=== PATIENT | male | born 1945 | race Caucasian/White ===

== ENCOUNTER 2019-04-16 07:42 | Day surgery (SDC) | payer OTHER ==
[2019-04-14 11:25] VITALS: BP 155/77
[~2019-04-16] VITALS: Ht 171.4 cm; Wt 98.9 kg
[2019-04-16] VITALS (15 sets, daily range): BP systolic 130–160; BP diastolic 65–82
[~2019-04-16 07:42] MED LIST: ALLO300T2 PO; ASPI-555 PO; LACTATED RINGERS 1000ML 1,000 ML IV SCH; LOSA50TA64 PO
--- NOTE | 2019-04-16 09:22 | NUR ---
LEFT TOE REDNESS AND SWELLING
[2019-04-16] MEDS ORDERED: DEXAMETHASONE SOD PHOSPHATE 10MG/ML 1ML VIAL ONE (09:55)
[2019-04-16] MEDS ORDERED: SUCCINYLCHOLINE 200MG/10ML SYR ONE (09:55)
[2019-04-16] MEDS ORDERED: LIDOCAINE PF 2% 5ML ABBOJECT ONE (09:55)
[2019-04-16] MEDS ORDERED: MIDAZOLAM HCL 1 MG/ML 2ML VIAL ONE ×2 (09:56→10:22)
[2019-04-16] MEDS ORDERED: GLYCOPYRROLATE 1 MG/5 ML SYRINGE ONE (09:56)
[2019-04-16] MEDS ORDERED: NEOSTIGMINE 5MG/5ML SYR IV ONE (09:56)
[2019-04-16] MEDS ORDERED: ONDANSETRON HCL 4 MG/2 ML VIAL ONE (09:56)
[2019-04-16] MEDS ORDERED: PROPOFOL 10 MG/ML 20ML VIAL IV ONE (09:56)
[2019-04-16] MEDS ORDERED: FENTANYL CITRATE PF 50 MCG/1 ML 2ML VIAL ONE (09:56)
[2019-04-16] MEDS ORDERED: ROPIVACAINE 0.5% 5MG/ML 30ML IJ ONE (10:21)
[2019-04-16] MEDS ORDERED: KETOROLAC TROMETHAMINE 30MG/ML ONE (12:30)
[2019-04-16] MEDS ORDERED: MEPERIDINE-PF 25 MG/ML SYG ONE (12:30)
--- NOTE | 2019-04-16 13:05 | NUR ---
POST RECEIVED PT FROM PACU,S/P RIGHT INGUINAL HERNIA REPAIR, DRESSING TO RIGHT INGUINAL DRY AND INTACT,NO DISTRESS NOTED. VS STABLE ON ARRIVAL SPOUSE AT BEDSIDE. PLAN OF CARE DISCUSS WITH PATIENT / SPOUSE, BOTH VERBALIZED UNDERSTANDING, CALL LIGHT WITHIN REACH
--- NOTE | 2019-04-16 13:35 | NUR ---
dc pt dc home via wc, no distress noted. pt denied any pain or discomforts. pt accompanied by spouse.
== END 2019-04-16 13:35 | disposition home or self-care (01) ==
LOC: DAH 07:42
PROVIDERS: ATTEND Surgery
DX: K40.90 Unilateral inguinal hernia, without obstruction or gangrene, not specified as recurrent (principal); I10 Essential (primary) hypertension; M10.9 Gout, unspecified; Z98.890 Other specified postprocedural states; Z79.899 Other long term (current) drug therapy; Z82.49 Family history of ischemic heart disease and other diseases of the circulatory system; Z82.5 Family history of asthma and other chronic lower respiratory diseases; Z72.89 Other problems related to lifestyle; Z79.82 Long term (current) use of aspirin
CPT/HCPCS: 49505; 93005; A4215; A4221; A4222; A4223; A4450; A4452; A4663; A6260; C1781; J0330; J1100; J1885; J2001; J2175; J2250 ×2; J2405; J2704; J2710; J2795; J3010; J3490; J7120 ×2